=== PATIENT | male | born 1960 | race Caucasian/White ===

== ENCOUNTER 2017-03-13 11:26 | Emergency (ER) | payer OTHER ==
[~2017-03-13] VITALS: Ht 167.6 cm; Wt 97.5 kg
[~2017-03-13 11:26] MED LIST: ATIVAN GENERIC 11 MG PO; ATIVAN1 M1 PO; ATORVASTATIN CA10 M1 PO; AZITHROMYCIN250 M1 PO; BUSPIRONE HCL10 MG PO; CIPRO 500MG TA500 MG PO; CRESTOR10 MG PO; DIAZEPAM5 MG PO; FLEXERIL10 M1 PO; FLUOXETINE HCL40 MG PO; GABAPENTIN 600600 MG PO; HYDROCHLOROTHIA25 M1 PO; K-DUR 1010 MEQ PO; K-DUR 2020 MEQ PO; K-DUR 20MEQ TA20 MEQ PO; KEFLEX 500MG.500 MG PO; LISINOPRIL 10MG10 MG PO; MAGNESIUM400 MG PO; MULTI VITAMINS1 TA1 PO; MULTI VITAMINS1 TAB PO; PREDNISONE 20MG20 MG PO; PROPRANOLOL HCL40 MG PO; SPIRIVA HA1 PUFF/INH IH; TESSALON PERLE100 MG PO; VITAMIN B COMPL PO
[2017-03-13 11:50] LABS: LYMPH # 1.9 K/mm3 (0.7-4.5); LYMPH % 27.8 % (10-50)
[2017-03-13 11:57] LABS: HEMOGLOBIN 14.2 g/dL (14.1-18.0)
--- OUTSIDE RECORDS SUMMARY | 2017-03-13 12:00 | External Medical Summary Rpt ---
Author Author JAMES [employer], [employer] Organization [employer] Address Unknown Phone Unavailable Results CBC W Auto Differential panel in Blood Observa Value Referen Units Interpr Notes Date tion ce etation Range Basophils 0 - 0.2 K/MM3 Normal No Oct 09 informati 2016 6:00 [#/volume on in AM ] in source Blood by data Automated count Basophils 0.1 - 2.0 % Normal No Oct 09 / informati 2016 6:00 leukocyte on in AM s in source Blood by data Automated count Eosinophi 0.0 - 0.4 K/mm3 Normal No Oct 09 ls informati 2016 6:00 [#/volume on in AM ] in source Blood by data Automated count Eosinophi 0.1 - % Normal No Oct 09 ls/100 12.0 informati 2016 6:00 leukocyte on in AM s in source Blood by data Automated count Granulocy 1.3 - 8.0 K/mm3 Normal No Oct 09 kin informati 2016 6:00 [#/volume on in AM ] in source Blood by data Automated count Granulocy 37.0 - % Normal No Oct 09 kin/100 80.0 informati 2016 6:00 leukocyte on in AM s in source Blood by data Automated count Hematocri 42.0 - % Low No Oct 09 t [Volume 52.0 informati 2016 6:00 on in AM Fraction] source of Blood data Hemoglobi 14.1 - g/dL Low No Oct 09 n 18.0 informati 2016 6:00 [Mass/vol on in AM ume] in source Blood data Lymphocyt 0.7 - 4.5 K/mm3 Normal No Oct 09 es informati 2016 6:00 [#/volume on in AM ] in source Unspecifi data ed specimen by Automated count Lymphocyt 10 - 50 % Normal No Oct 09 es informati 2016 6:00 [#/volume on in AM ] in source Unspecifi data ed specimen by Automated count Erythrocy 27 - 31.2 pg High No Oct 09 te mean informati 2016 6:00 corpuscul on in AM ar source hemoglobi data n [Entitic mass] Erythrocy 31.8 - g/dl Normal No Oct 09 te mean 35.4 informati 2016 6:00 corpuscul on in AM ar source hemoglobi data n concentra tion [Mass/vol ume] by Automated count Erythrocy 82.2 - fl High No Oct 09 te mean 97.8 informati 2016 6:00 corpuscul on in AM ar volume source [Entitic data volume] by Automated count Monocytes 0.1 - 1.0 K/mm3 Normal No Oct 09 informati 2016 6:00 [#/volume on in AM ] in source Blood by data Automated count Monocytes 1.7 - 9.3 % High No Oct 09 / informati 2016 6:00 leukocyte on in AM s in source Blood by data Automated count Platelet 7.4 - fl Normal Oct 09 mean 10.4 informati 2016 6:00 volume on in AM [Entitic source volume] data in Blood by Automated count Platelets 142 - 424 K/mm3 Low alert Oct 09 NOTIFICAT 2017 6:00 [#/volume ION AM ] in RESULT Blood 10/09 0646 Clarence Guevara Damaris Erythrocy 4.6 - 6.2 M/mm3 Low No Oct 09 kin informati 2016 6:00 [#/volume on in AM ] in source Amniotic data fluid Erythrocy 11.5 - % Normal No Oct 09 te 17.5 informati 2016 6:00 distribut on in AM ion width source [Entitic data volume] by Automated count Leukocyte 4.8 - K/MM3 Low No Oct 09 s 10.8 informati 2016 6:00 [#/volume on in AM ] in source Blood data Basic metabolic panel in Blood Observa Value Referen Units Interpr Notes Date tion ce etation Range Urea 7 - 18 mg/dL Low No Oct 09 nitrogen informati 2016 6:00 [Mass/vol on in AM ume] in source Serum or data Plasma Calcium 8.5 - mg/dL Normal No Oct 09 [Mass/vol 10.1 informati 2016 6:00 ume] in on in AM Serum or source Plasma data Chloride 98 - 107 mmoL/L Normal No Oct 09 [Moles/vo informati 2016 6:00 lume] in on in AM Serum or source Plasma data Carbon 21.0 - mmoL/L Normal No Oct 3 dioxide, 32.0 informati 2017 6:00 total on in AM [Moles/vo source lume] in data Serum or Plasma Creatinin 0.70 - mg/dL Low No Oct 09 e 1.30 informati 2017 6:00 [Mass/vol on in AM ume] in source Serum or data Plasma Creatinin 50 - 200 ML/MIN Normal No Oct 09 e renal informati 2016 6:00 clearance on in AM source predicted data by Cockcroft -Gault formula Estimated >60 ML/MIN No REFERENCE Oct 09 informati RANGE: 2017 6:00 glomerula on in >60 AM r source ML/MIN/1. filtratio data 73 SQUARE n rate METERSIf (GF this patient is -A merican, then multiply theresult by 1.210. Glucose 74 - 106 mg/dL Normal No Oct 09 [Mass/vol informati 2016 6:00 ume] in on in AM Serum or source Plasma data Potassium 3.5 - 5.1 mmoL/L Normal No Oct 09 informati 2016 6:00 [Moles/vo on in AM lume] in source Serum or data Plasma Sodium 136 - 145 mmoL/L Normal No Oct 09 [Moles/vo informati 2016 6:00 lume] in on in AM Serum or source Plasma data Hepatic function 2000 panel in Serum or Plasma Observa Value Referen Units Interpr Notes Date tion ce etation Range Albumin 3.4 - 5.0 gm/dL Low No Oct 09 [Mass/vol informati 2016 6:00 ume] in on in AM Serum or source Plasma data Alkaline 46 - 116 U/L High No Oct 09 phosphata informati 2016 6:00 se on in AM [Enzymati source c data activity/ volume] in Serum or Plasma Bilirubin 0.0 - 0.2 mg/dL High No Oct 09 .direct informati 2017 6:00 [Mass/vol on in AM ume] in source Serum or data Plasma Bilirubin 0 - 0.9 mg/dL Normal No Oct 09 .indirect informati 2017 6:00 on in AM [Mass/vol source ume] in data Serum or Plasma Bilirubin 0.2 - 1.0 mg/dL High No Oct 09 .total informati 2016 6:00 [Mass/vol on in AM ume] in source Serum or data Plasma Aspartate 15 - 37 U/L High No Oct 09 informati 2016 6:00 aminotran on in AM sferase source [Enzymati data c activity/ volume] in Serum or Plasma Alanine 12 - 78 U/L Normal No Oct 09 aminotran informati 2016 6:00 sferase on in AM [Enzymati source c data activity/ volume] in Serum or Plasma Protein 6.4 - 8.2 gm/dL Normal No Oct 09 [Mass/vol informati 2016 6:00 ume] in on in AM Serum or source Plasma data CBC W Auto Differential panel in Blood Observa Value Referen Units Interpr Notes Date tion ce etation Range Basophils 0 - 0.2 K/MM3 Normal No Oct 08 informati 2016 6:00 [#/volume on in AM ] in source Blood by data Automated count Basophils 0.1 - 2.0 % Normal No Oct 08 informati 2016 6:00 leukocyte on in AM s in source Blood by data Automated count Eosinophi 0.0 - 0.4 K/mm3 Normal No Oct 08 ls informati 2016 6:00 [#/volume on in AM ] in source Blood by data Automated count Eosinophi 0.1 - % Normal No Oct 08 ls/100 12.0 informati 2016 6:00 leukocyte on in AM s in source Blood by data Automated count Granulocy 1.3 - 8.0 K/mm3 Normal No Oct 08 kin informati 2016 6:00 [#/volume on in AM ] in source Blood by data Automated count Granulocy 37.0 - % Normal No Oct 08 kin/100 80.0 informati 2016 6:00 leukocyte on in AM s in source Blood by data Automated count Hematocri 42.0 - % Low No Oct 08 t [Volume 52.0 informati 2016 6:00 on in AM Fraction] source of Blood data Hemoglobi 14.1 - g/dL Low No Oct 08 n 18.0 informati 2016 6:00 [Mass/vol on in AM ume] in source Blood data Lymphocyt 0.7 - 4.5 K/mm3 Normal No Oct 08 es informati 2016 6:00 [#/volume on in AM ] in source Unspecifi data ed specimen by Automated count Lymphocyt 10 - 50 % Normal No Oct 08 es informati 2016 6:00 [#/volume on in AM ] in source Unspecifi data ed specimen by Automated count Erythrocy 27 - 31.2 pg High No Oct 08 te mean informati 2016 6:00 corpuscul on in AM ar source hemoglobi data n [Entitic mass] Erythrocy 31.8 - g/dl Normal No Oct 08 te mean 35.4 informati 2016 6:00 corpuscul on in AM ar source hemoglobi data n concentra tion [Mass/vol ume] by Automated count Erythrocy 82.2 - fl High No Oct 08 te mean 97.8 informati 2016 6:00 corpuscul on in AM ar volume source [Entitic data volume] by Automated count Monocytes 0.1 - 1.0 K/mm3 Normal No Oct 08 informati 2016 6:00 [#/volume on in AM ] in source Blood by data Automated count Monocytes 1.7 - 9.3 % Normal No Oct 2 /100 informati 2017 6:00 leukocyte on in AM s in source Blood by data Automated count Platelet 7.4 - fl High Oct 08 mean 10.4 informati 2016 6:00 volume on in AM [Entitic source volume] data in Blood by Automated count Platelets 142 - 424 K/mm3 Low alert Oct 08 NOTIFICAT 2017 6:00 [#/volume ION AM ] in RESULT Blood Erythrocy 4.6 - 6.2 M/mm3 Low No Oct 08 kin informati 2017 6:00 [#/volume on in AM ] in source Amniotic data fluid Erythrocy 11.5 - % Normal No Oct 08 te 17.5 informati 2016 6:00 distribut on in AM ion width source [Entitic data volume] by Automated count Leukocyte 4.8 - K/MM3 Low No Oct 08 s 10.8 informati 2016 6:00 [#/volume on in AM ] in source Blood data Basic metabolic panel in Blood Observa Value Referen Units Interpr Notes Date tion ce etation Range Urea 7 - 18 mg/dL Normal No Oct 08 nitrogen informati 2016 6:00 [Mass/vol on in AM ume] in source Serum or data Plasma Calcium 8.5 - mg/dL Low No Oct 08 [Mass/vol 10.1 informati 2016 6:00 ume] in on in AM Serum or source Plasma data Chloride 98 - 107 mmoL/L Normal No Oct 08 [Moles/vo informati 2016 6:00 lume] in on in AM Serum or source Plasma data Carbon 21.0 - mmoL/L Normal No Oct 2 dioxide, 32.0 informati 2016 6:00 total on in AM [Moles/vo source lume] in data Serum or Plasma Creatinin 0.70 - mg/dL No No Oct 2 e 1.30 informati informati 2017 6:00 [Mass/vol on in on in AM ume] in source source Serum or data data Plasma Creatinin 50 - 200 ML/MIN No No Oct 2 e renal informati informati 2016 6:00 clearance on in on in AM source source predicted data data by Cockcroft -Gault formula Estimated >60 ML/MIN No REFERENCE Oct 08 informati RANGE: 2017 6:00 glomerula on in >60 AM r source ML/MIN/1. filtratio data 73 SQUARE n rate METERSIf (GF this patient is -A merican, then multiply theresult by 1.210. Glucose 74 - 106 mg/dL Normal No Oct 08 [Mass/vol informati 2016 6:00 ume] in on in AM Serum or source Plasma data Potassium 3.5 - 5.1 mmoL/L Low No Oct 08 informati 2016 6:00 [Moles/vo on in AM lume] in source Serum or data Plasma Sodium 136 - 145 mmoL/L Normal No Oct 08 [Moles/vo informati 2016 6:00 lume] in on in AM Serum or source Plasma data Hepatic function 2000 panel in Serum or Plasma Observa Value Referen Units Interpr Notes Date tion ce etation Range Albumin 3.4 - 5.0 gm/dL Low No Oct 08 [Mass/vol informati 2016 6:00 ume] in on in AM Serum or source Plasma data Alkaline 46 - 116 U/L High No Oct 08 phosphata informati 2016 6:00 se on in AM [Enzymati source c data activity/ volume] in Serum or Plasma Bilirubin 0.0 - 0.2 mg/dL High No Oct 08 .direct informati 2017 6:00 [Mass/vol on in AM ume] in source Serum or data Plasma Bilirubin 0 - 0.9 mg/dL High No Oct 08 .indirect informati 2017 6:00 on in AM [Mass/vol source ume] in data Serum or Plasma Bilirubin 0.2 - 1.0 mg/dL High No Oct 08 .total informati 2016 6:00 [Mass/vol on in AM ume] in source Serum or data Plasma Aspartate 15 - 37 U/L High No Oct 08 inform2016 6:00 aminotran on in AM sferase source [Enzymati data c activity/ volume] in Serum or Plasma Alanine 12 - 78 U/L High No Oct 08 aminotran informati 2016 6:00 sferase on in AM [Enzymati source c data activity/ volume] in Serum or Plasma Protein 6.4 - 8.2 gm/dL Normal No Oct 08 [Mass/vol informati 2016 6:00 ume] in on in AM Serum or source Plasma data Magnesium [Moles/volume] in Unspecified specimen Observa Value Referen Units Interpr Notes Date tion ce etation Range Magnesium 1.4 - 2.2 mg/dL Normal No Oct 08 inform2016 6:00 [Moles/vo on in AM lume] in source Unspecifi data ed specimen Magnesium [Moles/volume] in Unspecified specimen Observa Value Referen Units Interpr Notes Date tion ce etation Range Magnesium 1.4 - 2.2 mg/dL Low Oct 07 2016 2:15 [Moles/vo CRITICAL AM lume] in RESULTS Unspecifi ed RESU specimen LTS CALLED TO: BRE 10/07/16 0652 Salvatore Queen Ethanol [Mass/volume] in Serum or Plasma Observa Value Referen Units Interpr Notes Date tion ce etation Range Ethanol 0 - 99 mg/dL High ANY Oct 07 [Mass/vol ALCOHOL > 2017 2:15 ume] in OR = 80 AM Serum or MG/DL IS Plasma CONSIDERE D LEGALLYIN TOXICATED UNDER [place] [employer] LAW. CBC W Auto Differential panel in Blood Observa Value Referen Units Interpr Notes Date tion ce etation Range Basophils 0 - 0.2 K/MM3 Normal No Oct 07 inform2016 2:15 [#/volume on in AM ] in source Blood by data Automated count Basophils 0.1 - 2.0 % Normal No Oct 07 /100 informati 2016 2:15 leukocyte on in AM s in source Blood by data Automated count Eosinophi 0.0 - 0.4 K/mm3 Normal No Oct 07 ls informati 2016 2:15 [#/volume on in AM ] in source Blood by data Automated count Eosinophi 0.1 - % Normal No Oct 07 ls/100 12.0 informati 2016 2:15 leukocyte on in AM s in source Blood by data Automated count Granulocy 1.3 - 8.0 K/mm3 Normal No Oct 07 kin informati 2016 2:15 [#/volume on in AM ] in source Blood by data Automated count Granulocy 37.0 - % Normal No Oct 07 kin/100 80.0 informati 2016 2:15 leukocyte on in AM s in source Blood by data Automated count Hematocri 42.0 - % Low No Oct 07 t [Volume 52.0 informati 2016 2:15 on in AM Fraction] source of Blood data Hemoglobi 14.1 - g/dL Low No Oct 07 n 18.0 informati 2016 2:15 [Mass/vol on in AM ume] in source Blood data Lymphocyt 0.7 - 4.5 K/mm3 Normal No Oct 07 es informati 2016 2:15 [#/volume on in AM ] in source Unspecifi data ed specimen by Automated count Lymphocyt 10 - 50 % Normal No Oct 07 es informati 2016 2:15 [#/volume on in AM ] in source Unspecifi data ed specimen by Automated count Erythrocy 27 - 31.2 pg High No Oct 07 te mean informati 2016 2:15 corpuscul on in AM ar source hemoglobi data n [Entitic mass] Erythrocy 31.8 - g/dl Normal No Oct 07 te mean 35.4 informati 2016 2:15 corpuscul on in AM ar source hemoglobi data n concentra tion [Mass/vol ume] by Automated count Erythrocy 82.2 - fl High No Oct 07 te mean 97.8 informati 2016 2:15 corpuscul on in AM ar volume source [Entitic data volume] by Automated count Monocytes 0.1 - 1.0 K/mm3 Normal No Oct 07 informati 2016 2:15 [#/volume on in AM ] in source Blood by data Automated count Monocytes 1.7 - 9.3 % Normal No Oct 07 /100 informati 2016 2:15 leukocyte on in AM s in source Blood by data Automated count Platelet 7.4 - fl Normal No Oct 07 mean 10.4 informati 2016 2:15 volume on in AM [Entitic source volume] data in Blood by Automated count Platelets 142 - 424 K/mm3 Low No Oct 07 informati 2017 2:15 [#/volume on in AM ] in source Blood data Erythrocy 4.6 - 6.2 M/mm3 Low No Oct 07 kin informati 2017 2:15 [#/volume on in AM ] in source Amniotic data fluid Erythrocy 11.5 - % Normal No Oct 07 te 17.5 informati 2017 2:15 distribut on in AM ion width source [Entitic data volume] by Automated count Leukocyte 4.8 - K/MM3 Normal No Oct 07 s 10.8 informati 2017 2:15 [#/volume on in AM ] in source Blood data
--- OUTSIDE RECORDS SUMMARY | 2017-03-13 12:00 | External Medical Summary Rpt ---
[...] IS Plasma CONSIDERE D LEGALLYIN TOXICATED UNDER [place] [employer]. CBC W Auto Differential panel in [...]
--- OUTSIDE RECORDS SUMMARY | 2017-03-13 12:00 | External Medical Summary Rpt | CCD ---
Author Author , JAMES RAMIREZ Address Unknown Phone [email or web address] Purpose Continuity of Care Document - 10-07-2016 through 2016 Problems Code Diagnosis DOS Provider Status F10.10 ALCOHOL ABUSE, UNCOMPLICAT ED F10.929 ALCOHOL USE, UNSPECIFIED WITH INTOXICATIO N, UNSPECIFIED J40 BRONCHITIS, NOT SPECIFIED ACUTE OR CHRONIC K29.70 GASTRITIS, UNSPECIFIED , WITHOUT BLEEDING K80.20 CALCULUS OF GALLBLADDER W/O CHOLECYSTIT IS W/O OBSTRUCTION R06.00 DYSPNEA, UNSPECIFIED R07.89 OTHER CHEST PAIN R79.89 OTHER SPECIFIED ABNORMAL FINDINGS OF BLOOD CHEMISTRY R94.5 ABNORMAL RESULTS OF LIVER FUNCTION STUDIES
--- OUTSIDE RECORDS SUMMARY | 2017-03-13 12:00 | External Medical Summary Rpt | CCD ---
Author Author , JAMES RAMIREZ Address Unknown Phone [email or web address] Purpose Continuity of Care Document - 10-07-2016 [...]
--- OUTSIDE RECORDS SUMMARY | 2017-03-13 12:00 | External Medical Summary Rpt | CCD ---
Demographics Preferred Language Czech Marital Status Unknown Mandaen Affiliation Unknown Race Unknown Ethnic Group Unknown Author Author , JAMES RAMIREZ Address Unknown Phone [email or web address] Immunization Name Date Rout CVX Reac Dose Comm Prov Is Faci e tion ent ider Refu lity Give sed n Td 03-0 9 999 Hist H149 No H149 (lucy 6-19 ori lt), 97 al Info adso rmat rbed ion - Sour ce Unsp ecif ied
--- OUTSIDE RECORDS SUMMARY | 2017-03-13 12:00 | External Medical Summary Rpt | CCD ---
Demographics Preferred Language Kinyarwanda Marital Status Unknown Hindu Affiliation Unknown Race Unknown Ethnic Group Unknown Author Author , JAMES RAMIREZ Address Unknown Phone [email or web address] Immunization Name Date Rout CVX Reac Dose Comm Prov Is Faci e tion ent ider Refu lity Give sed n Td 03-0 9 999 Hist H149 No H149 (lucy 6-19 ori lt), 97 al Info adso rmat rbed ion - Sour ce Unsp ecif ied
--- NOTE | 2017-03-13 12:08 | Emergency Room Report ---
History of Present Illness Time Seen by [id number] Presenting Problem in Triage Pt arrived:Wheelchair Presenting Problem:PATIENT STATES HE HAS CHEST PAIN, HAS BEEN VOMITING AND GOING THROUGH DT's FROM ALCOHOL W/D. HIS LAST DRINK WAS THIS AM BUT UNABLE TO KEEP WATER DOWN ALSO STATES HE HAS STOMACH PAIN Onset of symptoms date/time:/ or onset unknown for:MEDICAL HX UNKNOWN Treatment Prior to Arrival: PROMOTION SPECIALIST Provided by: Sepsis Risk Assessment: Temp: 99.1 B/P: 132/63 MAP: 114 Pulse: 108 Resp: 16 Recent fever? N Clinical Suspician of Infection? N Mental Status: 1 - Regular (Normal Baseline) Sepsis Risk:Low Sepsis Risk Have you (or family members/close friends) recently traveled outside the [place]? N If Yes, where/when: Have you had exposure to infectious disease within the past month? N TB? Other? Specify: Patient with chronic ETOH abuse, had vomiting today, no blood from above or below, and was unable to drink his usual amount of ETOH. He subsequently became shaky, and had chest pain after vomiting. Chest pain gone now. No diarrhea. Has mild pain when vomiting. Chest pain only in conjunction with emesis. He is not suicidal. He does not want detox today. ALLERGIES Coded Allergies: diphenhydramine (From BENADRYL) (10/07/16) Home Medications Active Scripts Lorazepam (Ativan 1MG Tab) 1 MG PO Q4 #24 TAB Prov: 10/09/16 Potassium Chloride (K-Dur) 20 MEQ PO DAILY #30 TER Prov: 10/09/16 Magnesium Oxide (Magnesium) 400 MG PO DAILY #30 TAB Prov: 10/09/16 Reported Medications Propranolol Hcl 40 MG PO BID Atorvastatin Calcium 10 MG PO QHS #30 Gabapentin 300 MG PO TID #90 Fluoxetine Hcl 40 MG PO DAILY #30 History Medical History General CAD? No Angina: No PR: No Hypertension? Yes Hyperlipidemia? Yes CHF? No DVT? No PE? No COPD? Yes Asthma? No Anemia? No GERD? No Gastric ulcers? No GI Bleed? No Hernia? Yes Thyroid Problems? No Hypothyroidism? No CVA? No Seizures? Yes Diabetes? No Renal Insuffiency? No End Stage Renal Disease? No UTI? No Stones? Yes BPH? No GB Disease: No Nephritic Syndrome? No Asplenia? No Hepatitis? No Sickle Cell Disease? No Arthritis? No Migraines? No Cataracts? No Glaucoma? No MRSA? No HIV? No TB? No Anxiety? No Depression? No Cancer? No More? No Immunization Hx Ped.Immunizations UTD No DT/Tetanus > 10 YRS Flu YES Pneumonia Refuses Surgical Hx Previous Surgery?Y CYST ON BACK Family History Family Hx Diabetes Yes CAD Yes Hypertension No Hyperlipidemia No Cancer Yes TB No Social History Smoking Hx Smoker: Current Every Day Smoker Tobacco: Yes Type Cigarettes Packs/day 1 1/2 - 2 Packs Are you/the child exposed to second-hand smoke: Yes Alcohol Alcohol: Yes Review of Systems All Other Systems Reviewed and Negative Cardiovascular see HPI Gastrointestinal see HPI Physical Exam Vital Signs Vital Signs Date Time Temp Pulse Resp B/P Pulse O2 O2 Flow FiO2 Ox Delivery Rate 03/13 1428 99.0 98 20 135/74 97 03/13 1423 22 03/13 1315 108 16 132/63 97 03/13 1237 114 16 142/106 98 03/13 1141 20 03/13 1128 99.1 116 16 150/97 99 General Appearance normal appearance, WD/WN, no apparent distress (vomiting) Eye Exam - bilateral eye normal exam, bilateral eye PERRL, bilateral eye EOMI Neck normal inspection, non-tender, supple, full range of motion Respiratory Status Yes: trachea midline, chest symmetrical, non tender chest. No: respiratory distress, tender on palpation, use of accessory muscles, pain on inspiration, pain on expiration, productive cough, non productive cough. Lung Sounds bilateral: normal breath sounds, lungs clear. Cardiovascular normal exam, regular rate/rhythm, no peripheral edema, no gallop, no JVD, no murmur, no rub, normal peripheral pulses Gastrointestinal normal bowel sounds, normal exam, non tender, soft, no organomegaly, no pulsatile mass, no guarding, no rebound Extremities non-tender, normal range of motion, normal inspection, normal capillary refill, no calf tenderness Strength 5 Upper Ext (L), 5 Upper Ext (R), 5 Lower Ext (L), 5 Lower Ext (R) Neurologic alert, normal exam, no motor/sensory deficits, oriented x 3 (speech clear; tremulous), no ataxia Glascow Coma Scale Glascow Coma Scale Response Value EYE response: 4 Spontaneously 4 MOTOR response: 6 OBEYS 6 VERBAL response: 5 Oriented & Converses 5 Total 15 Skin intact, normal color, warm/dry Medical Decision Making LABS/Meds/Orders Pt receiving controlled substance in ED? Yes Results/Orders Laboratory Tests 03/13/17 1140: Sodium 143, Potassium 2.9 *L, Chloride 100, Carbon Dioxide 21 L, BUN 4 L, Creatinine 1.1, Estimated Creat Clear 103, Estimated GFR (MDRD) 69, Glucose 156 H, Calcium 8.9, Total Bilirubin 0.9, AST 55 H, ALT 36, Alkaline Phosphatase 194 H, Creatine Kinase 87, CK-MB (CK-2) Rel Index 0.6, CK and CKMB Interp < 0.5, Troponin I < 0.02, Total Protein 7.9, Albumin 3.9, Globulin 4.0 H, Albumin/ Globulin Ratio 1.0 L, WBC 7.0, RBC 4.09 L, Hgb 14.2, Hct 41.6 L, MCV 101.7 H , RDW 13.3, Plt Count 144, MPV 8.1, Gran % 64.2, Gran # 4.5, Lymphocytes % 27.8, Monocytes % 6.9, Eosinophils % 0.6, Basophils % 0.5, Lymphocytes # 1.9, Monocytes # 0.5, Eosinophils # 0.0, Basophils # 0.0, PUBS MCHC 34.0, MCH 34.6 H , Alcohols 197 H Current Medication Orders Sig/Mandi Start time Last Medication Dose Route Stop Time Status Admin Lorazepam 2 MG ONCE ONE 03/13 1430 DC 03/13 IV 03/13 1431 1423 Ondansetron HCl 4 MG ONCE ONE 03/13 1430 DC 03/13 IV 03/13 1431 1422 Lorazepam 0 .STK-MED ONE 03/13 1422 DC .ROUTE Ondansetron HCl 0 .STK-MED ONE 03/13 1422 DC .ROUTE Potassium Chloride 0 .STK-MED ONE 03/13 1307 DC PO Potassium Chloride 20 MEQ ONCE ONE 03/13 1230 DC 03/13 PO 03/13 1231 1310 Magnesium Sulfate 2 GM ONCE ONE 03/13 1200 DC 03/13 Sodium Chloride 50 ML IV 03/13 1259 1215 Ondansetron HCl 4 MG ONCE ONE 03/13 1200 DC 03/13 IV 03/13 1201 1153 Pantoprazole Sodium 40 MG ONCE ONE 03/13 1200 DC 03/13 IV 03/13 1201 1153 Aspirin 324 MG ONCE ONE 03/13 1145 DC 12 PO 03/13 1146 1140 Lorazepam 1 MG ONCE ONE 03/13 1145 DC 03/13 IV 03/13 1146 1141 Sodium Chloride 1,000 ML .Q1H1M 03/13 1145 DC 03/13 IV 03/13 1245 1141 Sodium Chloride 10 ML PRN PRN 03/13 1145 AC IV 03/14 1138 Thiamine HCl 100 MG ONCE ONE 03/13 1145 DC 03/13 PO 03/13 1146 1140 Pantoprazole Sodium 0 .STK-MED ONE 03/13 1144 DC IV Ondansetron HCl 0 .STK-MED ONE 03/13 1143 DC .ROUTE Lorazepam 0 .STK-MED ONE 03/13 1139 DC .ROUTE Sodium Chloride 1,000 ML .STK-MED ONE 03/13 1139 DC IV Aspirin 0 .STK-MED ONE 03/13 1130 DC .ROUTE Sodium Chloride 10 ML PRN PRN 03/13 1130 AC 03/13 IV 03/14 1127 1215 Thiamine HCl 0 .STK-MED ONE 03/13 1130 DC .ROUTE Orders Procedure Date/time Status ELECTROCARDIOGRAM REQUEST 03/13 112 Active IV SALINE LOCK 03/13 112 Active CBC WITH AUTO DIFF 03/13 112 Complete CARDIAC ENZYMES 03/13 112 Complete CHEM 12 PROFILE 03/13 1127 Complete ALCOHOL 03/13 112 Complete 12 LEAD EKG-ELIZABETH (INITIAL) 03/13 UNK Active Progress ED Progress Notes Date 03/13/17 Time 1434 Comment KCl PO, Mag IV, Thiamine PO, Zofran, Ativan, resting comfortably, no chest pain, no abdominal pain, not suicidal, ready to go home Departure Departure Time of Disposition 1435 Disposition DC Home or Self Care(routine) Clinical Impression Primary Impression: Vomiting Qualifiers: Vomiting type: unspecified Vomiting Intractability: non-intractable Nausea presence: without nausea Qualified Code: R11.11 - Vomiting without nausea Secondary Impressions: Atypical chest pain Condition STABLE Referrals Stef Faustin MD (Family) Patient Instructions DI for Atypical Chest Pain, DI for Vomiting -- Adult Additional Instructions See Dr. Faustin for follow up one to two days Discharge Counseling Counseled pt/family regarding diagnosis, test results, R/B of controlled subst., medications/RX, home care, follow up needs Prescriptions Current Visit Scripts Diazepam (Valium) 1 MG PO Q8HP PRN tremulousness #6 TAB ED Critical Care Critical Care No at [id number]
--- NOTE | 2017-03-13 12:19 | RADIOLOGY REPORT PS360 ---
CHEST-PORTABLE HISTORY: CHEST PAIN ORDERING PHYSICIAN: Cande Rodriguez MD PATIENT AGE: 56 years COMPARISON: 10/07/2016 FINDINGS: The cardiomediastinal silhouette and pulmonary vascularity are within normal limits. The lungs are clear without infiltrates, suspicious nodules, or pleural effusions. No acute bony abnormalities. There are old fractures of the right sixth, seventh, and eighth ribs IMPRESSION: No acute finding, old right rib fractures
[2017-03-13 12:20] LABS: BUN 4 mg/dL (7-18); GFR (ESTIMATED) 69 ML/MIN (>60)
[2017-03-13] MEDS ORDERED: VALIUM2 MG PO (14:36)
[2017-03-13 15:02] VITALS: BP 138/89
[2017-03-24] MEDS ORDERED: LIORESAL 10MG.10 MG PO (09:33)
[2017-03-26] MEDS ORDERED: ATIVAN GENERIC 11 MG PO (07:21)
== END 2017-03-13 15:05 | disposition home or self-care (01) ==
LOC: ER 11:26
PROVIDERS: Emergency Medicine
DX: R11.11 Vomiting without nausea (principal); R07.89 Other chest pain; F17.210 Nicotine dependence, cigarettes, uncomplicated; I10 Essential (primary) hypertension; J44.9 Chronic obstructive pulmonary disease, unspecified; F10.10 Alcohol abuse, uncomplicated
CPT/HCPCS: J2405